=== PATIENT | male | born 1960 | race Caucasian/White ===

== ENCOUNTER 2023-07-28 05:48 | Inpatient (IN) | payer OTHER ==
[2023-07-21 15:24] LABS: BASOPHILS % (AUTO) 0.4 % (0-1); EOSINOPHILS # (AUTO) 0.3 X10'3 (0-0.9); EOSINOPHILS % (AUTO) 3.1 % (0-6); LYMPHOCYTES # (AUTO) 1.7 X10'3 (1.1-4.8); LYMPHOCYTES % (AUTO) 18.6 % (21-51); MEAN CORPUSCULAR HEMOGLOBIN 30.3 PG (27.0-31.0); MEAN CORPUSCULAR HGB CONC 33.4 g/dL (33.0-36.5); MEAN CORPUSCULAR VOLUME 90.5 FL (78-98); MONOCYTES # (AUTO) 0.5 X10'3 (0-0.9); MONOCYTES % (AUTO) 5.9 % (2-12); NEUTROPHILS # (AUTO) 6.5 X10'3 (1.8-7.7); PRE OP HEMATOCRIT 47.1 % (42.0-52.0); PRE OP HEMOGLOBIN 15.7 g/dL (14.0-17.9); PRE OP PLATELET COUNT 336 X10'3 (140-440); RED CELL DISTRIBUTION WIDTH 13.6 % (11.5-14.5)
[2023-07-21 15:37] LABS: ALBUMIN 3.8 G/DL (3.4-5.0); ALBUMIN/GLOBULIN RATIO 1.2 (1.1-1.5); ALKALINE PHOSPHATASE 102 IU/L (46-116); BLOOD UREA NITROGEN 16 MG/DL (7-18); BUN/CREATININE RATIO 16.2 (10.0-20.0); CALCIUM 8.9 MG/DL (8.5-10.1); CHLORIDE 104 MMOL/L (99-107); CREATININE 0.99 MG/DL (0.60-1.10); PRE OP ALT 22 U/L (30-65); PRE OP ANION GAP 7 (8-16); PRE OP AST 12 U/L (10-37); PRE OP BILIRUB, TOTAL 1.2 MG/DL (0.0-1.0); PRE OP GLUCOSE 110 MG/DL (70-104); PRE OP POTASSIUM 4.2 MMOL/L (3.4-5.1); PRE OP SODIUM 140 MMOL/L (135-145); TOTAL CARBON DIOXIDE 29.2 MMOL/L (24-32); TOTAL PROTEIN 6.9 G/DL (6.4-8.2); eGFR 77 ML/MIN
[2023-07-28] VITALS (30 sets, daily range): BP systolic 100–139; BP diastolic 61–105; PULSE 70–89; RESP 14–21; TEMP 97.3–98.7; O2SAT 92–99
[~2023-07-28] VITALS: Ht 172.7 cm; Wt 80.3 kg
[2023-07-28] MEDS: clindamycin-Cleocin 900mg/D5W 50 ML IV ONE (05:30)
[2023-07-28] MEDS: famotidine 20mg tablet PO ONE (05:30)
[2023-07-28] MEDS: vancomycin 1,500 MG in NS 300ml IV soln IV ONE (05:30)
[2023-07-28] MEDS: ringers solution, lacted 1,000 ML IV SCH ×2 (05:30→07:25)
[2023-07-28] MEDS: tranexamic acid inj. 1,000 MG in normal saline IV soln 100ML IV ONE (05:30)
[~2023-07-28 05:48] MED LIST: LISI40TA13 PO
[2023-07-28] MEDS ORDERED: propofol inj 20 ML IV ONE (07:20)
[2023-07-28] MEDS ORDERED: dexamethasone sod phosphate 4mg/ml inj. ONE (07:20)
[2023-07-28] MEDS ORDERED: midazolam 1 mg/ML 2ml injection ONE (07:20)
[2023-07-28] MEDS ORDERED: fentaNYL/PF 50MCG/1 ML 2ML syringe ONE ×3 (07:20→09:52)
[2023-07-28] MEDS ORDERED: LIDOcaine 2% (20mg/ml) 5ml vial ONE ×2 (07:20→07:37)
[2023-07-28] MEDS ORDERED: ondansetron/PF 4mg/2ml inj ONE (07:23)
[2023-07-28] MEDS ORDERED: morphine 2 MG/ML inj. syringe IV PRN (07:25)
[2023-07-28] MEDS ORDERED: labetalol 20mg/4ml (5mg/ml) syringe IV PRN (07:25)
[2023-07-28] MEDS ORDERED: fentaNYL/PF 50MCG/1 ML 2ML syringe IV PRN ×2 (07:25)
[2023-07-28] MEDS ORDERED: ondansetron/PF 4mg/2ml inj IV PRN ×2 (07:25→10:40)
[2023-07-28] MEDS ORDERED: morphine 4 MG/ML inj SYRINge IV PRN (07:25)
[2023-07-28] MEDS ORDERED: hydrALAZINE 20mg/ml inj. IV PRN (07:25)
[2023-07-28] MEDS ORDERED: labetalol 20mg/4ml (5mg/ml) syringe IV ONE ×2 (07:37→10:15)
[2023-07-28] MEDS ORDERED: desflurane 240ml liquid inh. IH ONE (07:37)
[2023-07-28] MEDS ORDERED: PHENYLephrine 10mg/ml 5ml injection IV ONE (07:37)
[2023-07-28] MEDS ORDERED: acetaminophen 1,000mg/100ml IV 100 ML IV ONE (08:16)
[2023-07-28] MEDS ORDERED: ROPIVAcaine 0.2% (10 MG/5 ML) BOLUS INJECTION INTERSCALE PRN (08:50)
[2023-07-28] MEDS: vancomycin 1,000mg inj ONE (08:52)
[2023-07-28] MEDS ORDERED: ketorolac trometh. 30mg/ml inj. ONE (09:52)
[2023-07-28] MEDS ORDERED: oxyCODONE IR 5mg (immed. release) tablet PO PRN ×2 (10:40)
[2023-07-28] MEDS ORDERED: HYDROmorphone inj. 0.5 MG/0.5 ML DISP.SYRIN IV PRN (10:40)
[2023-07-28] MEDS ORDERED: tranexamic acid inj. 800 MG in normal saline 100ml IV soln 92 ML IV ONE (10:40)
[2023-07-28] MEDS ORDERED: HYDROmorphone 1 mg/ml syringe IV PRN (10:40)
[2023-07-28] MEDS ORDERED: bisacodyl 10mg suppository rectal RC PRN (10:40)
[2023-07-28] MEDS ORDERED: diphenhydrAMINE 25mg capsule PO PRN ×2 (10:40)
[2023-07-28] MEDS ORDERED: naloxone 0.4 mg/ml inj IV PRN (10:40)
[2023-07-28] MEDS ORDERED: magnesium hydroxide 30ml (MOM) UD suspension PO PRN (10:40)
[2023-07-28] MEDS ORDERED: acetaminophen 325mg tablet PO PRN (10:40)
[2023-07-28] MEDS: ROPIVAcaine 0.2%/PF PUMP/bolus 545 ML INTERSCALE SCH (10:58)
[2023-07-28] MEDS: tranexamic acid inj. 800 MG in normal saline 100ml IV soln 92 ML IV ONE (13:30)
[2023-07-28] MEDS: acetaminophen 325mg tablet PO SCH (15:08)
[2023-07-28] MEDS: potassium Cl 20mEq in NS 1,000 ML IV SCH (18:40)
[2023-07-28] MEDS: sennosides 8.6mg tablet PO SCH (20:49)
[2023-07-29 02:00] VITALS: BP 151/77; PULSE 88; RESP 18; TEMP 97.6; O2SAT 99
[2023-07-29 06:00] VITALS: BP 157/85; PULSE 81; RESP 12; TEMP 97.7; O2SAT 98
[2023-07-29] MEDS: aspirin 325mg tablet PO SCH (08:19)
[2023-07-29 10:00] VITALS: BP 172/74; PULSE 97; RESP 14; TEMP 97.6; O2SAT 97
[2023-07-29] MEDS ORDERED: celeCOXIB 100mg capsule PO SCH (20:00)
[2023-07-30] MEDS ORDERED: acetaminophen 325mg tablet PO PRN (10:40)
== END 2023-07-29 11:15 | disposition home or self-care (01) | DRG 483 ==
LOC: PAS IN 05:48 → ORTHO 4S 17:00
PROVIDERS: ADMIT Orthopaedic Surgery; ATTEND Orthopaedic Surgery
PROC: 0JH80WZ Insertion of Totally Implantable Vascular Access Device into Abdomen Subcutaneous Tissue and Fascia, Open Approach (ICD-10-PCS; 2023-07-28)
PROC: 3E0T3BZ Introduction of Anesthetic Agent into Peripheral Nerves and Plexi, Percutaneous Approach (ICD-10-PCS; 2023-07-28)
PROC: 3E0T33Z Introduction of Anti-inflammatory into Peripheral Nerves and Plexi, Percutaneous Approach (ICD-10-PCS; 2023-07-28)
PROC: 0RRK0JZ Replacement of Left Shoulder Joint with Synthetic Substitute, Open Approach (ICD-10-PCS; principal; 2023-07-28 07:37)
DX: M19.012 Primary osteoarthritis, left shoulder (principal); I10 Essential (primary) hypertension; Z96.611 Presence of right artificial shoulder joint; K21.9 Gastro-esophageal reflux disease without esophagitis; Z87.891 Personal history of nicotine dependence; Z88.0 Allergy status to penicillin
CPT/HCPCS: Z7506; Z7508; 36415; 73020; 80053; 82948; 85025; 87081; 93005; 97110; 97116; 97161; A4565; A4618; A6455; A7000; C1713; C1776; C9250; G0378; J0131; J1100; J1885; J2250; J2370; J2405; J2704; J2795; J3010; J3370; J3490; J7120